=== PATIENT | female | born 1985 | race Hispanic/Latino ===

== ENCOUNTER 2018-01-05 03:58 | Emergency (ER) | payer SELFPAY ==
[2018-01-05] MEDS ORDERED: KETOROLAC TROMETHAMINE INJ 30 MG/ML VIAL ONE (04:27)
--- NOTE | 2018-01-05 04:27 | ED.PDOC ---
History of Present Illness - General Chief Complaint: Abdominal Pain Stated Complaint: LUQ pain Time Seen by Provider: 01/05/18 04:17 Source: patient Exam Limitations: no limitations - History of Present Illness Initial Comments: Patient presents with LUQ pain for 3 hours. It is colicky in nature with radiation to both flanks. She has had previous episodes but none this bad. It is associated with N/V. Her last meal was last night and it did not cause the pain. Her last bowel movement was 30 minutes [employer] and it did not affect the pain. She said it was a "normal" color and not diarrhea. Aching in nature. No particular timing nor context. Worse with abdominal movements, better with rest. She had chills but denies any other associated symptoms. Timing/Duration: 1-3 hours Severity: moderate Improving Factors: rest Worsening Factors: immobilization Associated Symptoms: nausea/vomiting Allergies/Adverse Reactions: Allergies NO KNOWN ALLERGY Allergy (Verified 07/22/14 10:58) Home Medications: Ambulatory Orders Control Pills 1 tablet PO DAILY 01/05/18 Multiple Vitamins W/ Minerals [Vitamins & Minerals] 1 tab PO DAILY 01/05/18 Tramadol HCl 50 mg PO Q6HRS PRN #20 tab 01/05/18 Review of Systems - Review of Systems Constitutional: States: chills EENTM: States: no symptoms reported Respiratory: States: no symptoms reported Cardiology: States: no symptoms reported Genitourinary: States: see HPI Musculoskeletal: States: no symptoms reported Skin: States: no symptoms reported Neurological: States: no symptoms reported Endocrine: States: no symptoms reported Hematologic/Lymphatic: States: no symptoms reported Past Medical History (General) - Patient Medical History Hx Seizures: No Hx Stroke: No Hx Dementia: No Hx Asthma: No Hx of COPD: No Hx Cardiac Disorders: No Hx Congestive Heart Failure: No Hx Pacemaker: No Hx Hypertension: No Hx Thyroid Disease: No Hx Diabetes: No Hx Gastroesophageal Reflux: No Hx Renal Disease: No Hx Cancer: No Hx of HIV: No Hx Hepatitis C: No Hx MRSA: No - Vaccination History Hx Tetanus, Diphtheria Vaccination: No Hx Influenza Vaccination: Yes Hx Pneumococcal Vaccination: No - Social History Hx Tobacco Use: No Hx Chewing Tobacco Use: No Hx Alcohol Use: No Hx Substance Use: No Hx Substance Use Treatment: No Hx Depression: No Hx Physical Abuse: No Hx Emotional Abuse: No Hx Suspected Abuse: No - Female History Patient : No Family Medical History - Family History Grandparents Living Status: Still Living Hx Family Diabetes: Yes Physical Exam - Physical Exam General Appearance: Obvious distress Eye Exam: bilateral normal Ears, Nose, Throat: hearing grossly normal, normal ENT inspection Neck: non-tender, full range of motion, supple Respiratory: chest non-tender, lungs clear, normal breath sounds Cardiovascular/Chest: normal peripheral pulses, regular rate, rhythm, no edema Gastrointestinal/Abdominal: normal bowel sounds, soft, tenderness - TTP in LUQ. Positive Hagen's sign. Negative Rovsing's sign. McBurney's point NTTP. NABS. Negative obturator and psoas signs. Back Exam: no CVA tenderness Extremity: normal range of motion, non-tender, normal inspection Neurologic: refrigerator tester II-XII nml as tested, no motor/sensory deficits, alert Skin Exam: normal color Lymphatic: no adenopathy Progress - Progress Progress: 01/05/18 05:19 Toradol 30 mg IV resolved the pain. I spoke with the patient about the risks and benefits of a CT scan. Her LFTs were normal. She elected to follow up with Dr. Weller for a possible ultrasound. Departure - Departure Clinical Impression: Biliary colic Disposition: Discharge to Home or Self Care Condition: Good Departure Forms: ED Discharge - Pt. Copy, Patient Portal Self Enrollment Instructions: DI for Abdominal Pain-Adult Diet: low fat, low cholesterol Activity: increase activity as tolerated Referrals: Enoc Hurtado MD [Primary Care Provider] - 1-2 Weeks Prescriptions: Tramadol HCl 50 mg PO Q6HRS PRN #20 tab PRN Reason: Moderate Pain Home Medications: Ambulatory Orders Control Pills 1 tablet PO DAILY 01/05/18 Multiple Vitamins W/ Minerals [Vitamins & Minerals] 1 tab PO DAILY 01/05/18 Tramadol HCl 50 mg PO Q6HRS PRN #20 tab 01/05/18
[2018-01-05] MEDS ORDERED: KETOROLAC TROMETHAMINE INJ 30 MG/ML VIAL IV ONE (04:29)
[2018-01-05 06:32] VITALS: BP 105/51; TEMP 98.2; O2SAT 97
== END 2018-01-05 06:00 | disposition home or self-care (01) ==
LOC: ER 03:58
DX: K80.50 Calculus of bile duct without cholangitis or cholecystitis without obstruction (principal)
CPT/HCPCS: 36415; 80053; 81001; 81025; 83690; 85025; 87086; J1885